=== PATIENT | male | born 1990 | race African-American/Black ===

== ENCOUNTER 2018-07-04 13:54 | Emergency (ER) | payer MEDICAID ==
[~2018-07-04] VITALS: Ht 177.8 cm; Wt 63.6 kg
[2018-07-04] MEDS ORDERED: LIDOCAINE 1% 10 ML VIAL INJ ONE (16:45)
[2018-07-04 17:00] VITALS: BP 113/70
[2018-07-04] MEDS ORDERED: PERTUSS(ACELL),DIPH,TET VAC/PF 0.5 ML VIAL IM ONE (17:15)
[2018-07-04] MEDS ORDERED: BACITRACIN 0.9 GM PACKET OINTMENT TP ONE (17:15)
== END 2018-07-04 17:30 | disposition home or self-care (01) ==
LOC: EMS 13:55
DX: S02.32XA Fracture of orbital floor, left side, initial encounter for closed fracture (principal); S01.112A Laceration without foreign body of left eyelid and periocular area, initial encounter; F17.210 Nicotine dependence, cigarettes, uncomplicated; Y04.0XXA Assault by unarmed brawl or fight, initial encounter; Y93.89 Activity, other specified; Y92.89 Other specified places as the place of occurrence of the external cause; Y99.8 Other external cause status
CPT/HCPCS: 12011; 70450; 70486; 90471; 90715; 99284; J3490

== ENCOUNTER 2018-07-09 14:17 | Emergency (ER) | payer MEDICAID | END 2018-07-09 14:28 | disposition left against medical advice (07) | LOC: EMS 14:18 | DX: Z76.0 Encounter for issue of repeat prescription (principal); Z53.21 Procedure and treatment not carried out due to patient leaving prior to being seen by health care provider ==